=== PATIENT | female | born 1970 | race Two or more races ===

== ENCOUNTER 2018-03-16 06:00 | Day surgery (SDC) | payer OTHER ==
[~2018-03-16] VITALS: Ht 170.2 cm; Wt 71.2 kg
[~2018-03-16 06:00] MED LIST: TOPROL XL50 M1 PO
== END 2018-03-17 13:00 | disposition home or self-care (01) ==
LOC: O/R 06:00 → CIR.AMB 06:00 → SURG 06:00 → EDSTATUS 07:45 → SURG 08:45 → OB/GYN 10:36 → O/R 10:36 → OB/GYN 03-17 11:06 → CIR.AMB 03-17 13:00
DX: D25.1 Intramural leiomyoma of uterus (principal); D25.2 Subserosal leiomyoma of uterus; D25.0 Submucous leiomyoma of uterus; N72 Inflammatory disease of cervix uteri; N80.0 Endometriosis of uterus